=== PATIENT | female | born 1945 ===

== ENCOUNTER 2016-06-21 07:58 | Day surgery (SDC) | payer MEDICARE, BC ==
[2016-06-21] MEDS ORDERED: POLYMYXIN B SULFATE 500,000 UNITS, BACITRACIN 50,000 UNITS, NORMAL SALINE 20 ML MC ONE ×3 (11:00)
[2016-06-21] MEDS ORDERED: BUPIVACAINE/EPI PF 0.5% 10 ML VIAL ONE (11:13)
[2016-06-21] MEDS ORDERED: BUPIVACAINE/EPI PF 0.25% 30 ML VIAL ONE (11:20)
[2016-06-21] MEDS ORDERED: KETOROLAC TROMETHAMINE 30 MG INJ IM ONE (14:28)
[2016-06-21] MEDS ORDERED: CEFAZOLIN 1 G VIAL MC ONE (14:28)
[2016-06-21] MEDS ORDERED: DEXAMETHASONE SOD PHOSPHATE 4 MG INJ IV ONE (14:28)
[2016-06-21] MEDS ORDERED: LIDOCAINE HCL 1% 20 ML VIAL ONE (14:28)
[2016-06-21] MEDS ORDERED: PROPOFOL 200 MG/20 ML BOTTLE IV ONE (14:28)
[2016-06-21] MEDS ORDERED: SEVOFLURANE 250 ML BOTTLE IH ONE (14:32)
== END 2016-06-21 15:10 | disposition home or self-care (01) ==
LOC: DS 07:58
PROVIDERS: ATTEND Orthopaedic Surgery
DX: M75.101 Unspecified rotator cuff tear or rupture of right shoulder, not specified as traumatic (principal); M75.41 Impingement syndrome of right shoulder; M71.9 Bursopathy, unspecified; R25.1 Tremor, unspecified; E11.9 Type 2 diabetes mellitus without complications; E03.9 Hypothyroidism, unspecified
CPT/HCPCS: A4565; A4649; A4663; C1713; J0690; J1100; J1885; J3490; J7030